=== PATIENT | female | born 1960 | race Caucasian/White ===

== ENCOUNTER 2023-06-24 10:52 | Outpatient (CLI) | payer BC ==
[2023-06-24] MEDS ORDERED: Magnevist 469MG/ML 20 ML VIAL ONE (13:45)
== END 2023-06-24 10:53 | disposition home or self-care (01) ==
LOC: CSHMRI 10:52
PROVIDERS: ATTEND Psychiatry & Neurology Neurology
DX: M48.02 Spinal stenosis, cervical region (principal); M47.812 Spondylosis without myelopathy or radiculopathy, cervical region
CPT/HCPCS: 72156; A9579

== ENCOUNTER 2025-03-30 09:44 | Outpatient (CLI) | payer OTHER | END 2025-03-30 09:45 | disposition home or self-care (01) | LOC: CSHDTY/OP 09:44 | PROVIDERS: ATTEND Nurse Practitioner Family | DX: Z71.3 Dietary counseling and surveillance (principal) | CPT/HCPCS: 97802 ==